=== PATIENT | male | born 1995 | race Two or more races ===

== ENCOUNTER 2017-10-20 13:46 | Emergency (ER) | payer SELFPAY ==
[~2017-10-20] VITALS: Ht 177.8 cm; Wt 74.8 kg
== END 2017-10-20 15:27 | disposition home or self-care (01) ==
LOC: ER 13:48
DX: H60.8X1 Other otitis externa, right ear (principal); K21.9 Gastro-esophageal reflux disease without esophagitis

== ENCOUNTER 2019-08-19 22:38 | Emergency (ER) | payer OTHER ==
[~2019-08-19] VITALS: Ht 180.3 cm; Wt 73.0 kg
[2019-08-19 22:56] VITALS: BP 123/69
== END 2019-08-19 23:23 | disposition home or self-care (01) ==
LOC: ER 22:45
DX: J02.9 Acute pharyngitis, unspecified (principal); K21.9 Gastro-esophageal reflux disease without esophagitis